=== PATIENT | male | born 1980 | race African-American/Black ===

== ENCOUNTER 2019-01-02 11:55 | Emergency (ER) | payer SELFPAY ==
[~2019-01-02] VITALS: Ht 195.6 cm; Wt 136.1 kg
[2019-01-02 12:04] VITALS: BP 123/73
--- NOTE | 2019-01-02 12:10 | NUR ---
ED Nurse Note: Patient walked into ED c/o right arm/elbow pain for 2 days. patient denies any injury. patient is alert awake x4 ambulatory. breathing unlabored and even.
--- NOTE | 2019-01-02 12:24 | Emergency Room Report ---
History of Present Illness General Chief Complaint: Pain Source: Patient Present Illness HPI 62-year-old male brought in by self complaining of right arm pain x2 days. Pain started upon awakening. Pain is 10/10 sore in quality. Denies numbness. Denies any fall or trauma. denies shortness of breath or chest pain. Allergies: Coded Allergies: No Known Allergies (Unverified , 01/02/19) Patient History Past Medical History: COPD Past Surgical History: none Pertinent Family History: none Social History: Reports: smoking Review of Systems Musculoskeletal: Reports: joint pain All Other Systems: negative except mentioned in HPI Physical Exam Vital Signs Date Time Temp Pulse Resp B/P (MAP) Pulse Ox O2 Delivery O2 Flow Rate FiO2 01/02/19 12:04 99.0 94 20 123/73 (90) 94 Room Air Sp02 EP Interpretation: abnormal General Appearance: normal inspection Head: normocephalic, atraumatic Eyes: bilateral eye normal inspection, bilateral eye PERRL ENT: hearing grossly normal Neck: full range of motion Respiratory: chest non-tender, lungs clear, normal breath sounds, speaking full sentences Cardiovascular #1: regular rate, rhythm, no edema Rectal: deferred Musculoskeletal: back normal, gait/station normal, decreased range of motion - right shoulder and elbow: no deformity, no swelling, tender to right anterior shoulder and elbow, decreased active ROM due to pain. 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 Neurologic: alert, oriented x3, responsive, motor strength/tone normal, sensory intact, speech normal Psychiatric: judgement/insight normal, memory normal, mood/affect normal, no suicidal/homicidal ideation Reflexes: 3+ bicep (R), 3+ bicep (L), 3+ tricep (R), 3+ tricep (L), 3+ knee (R) , 3+ knee (L) Lymphatic: no adenopathy Medical Decision Making PA Attestation This patient was seen under the direct supervision of [Dr. Amador Joy] who directed all aspects of care and diagnostic interpretation. Medical: COPD Diagnostic Impression: Primary Impression: Shoulder pain, right Qualified Codes: M25.511 - Pain in right shoulder ER Course ED course HPI: 38-year-old male complaining of right upper extremity pain for 2 days, pain started upon awakening. Pain worse with movement. Denies fall or trauma. Patient is well-appearing, no acute distress. Ddx: Fracture versus muscle strain versus frozen shoulder. HPI & PE consistent with: acute right shoulder pain Orders/ Interventions: X-rays of the right shoulder and right elbow ordered. Patient medicated with ibuprofen 600 mg x 1. Arm sling applied to the right upper extremity. X-rays negative for acute fracture or dislocation. Results discussed with patient. Disposition: Patient stable for discharge home. Arm sling use for 2 days. Modified physical activity. Continue with OTC ibuprofen. Other X-Ray Diagnostic Results Other X-Ray Diagnostic Results #1: X-Ray ordered: shoulder (right) # of Views/Limited Vs Complete: 3 View Indication: Pain EP Interpretation: Yes MITALI Xray: Interpretation reviewed, by supervising MD, and agrees with findings. Interpretation: no dislocation, no soft tissue swelling, no fractures Impression: No acute disease Electronically Signed by: Narendra Aguiar PA-C Other X-Ray Diagnostic Results #2: X-Ray ordered: elbow (right) # of Views/Limited Vs Complete: 3 View Indication: Pain EP Interpretation: Yes MITALI Xray: Interpretation reviewed, by supervising MD, and agrees with findings. Interpretation: no dislocation, no soft tissue swelling, no fractures Impression: No acute disease Electronically Signed by: Naerndra Aguiar PA-C Last Vital Signs Date Time Temp Pulse Resp B/P (MAP) Pulse Ox O2 Delivery O2 Flow Rate FiO2 01/02/19 12:04 99.0 94 20 123/73 (90) 94 Room Air Disposition: HOME, SELF-CARE Condition: Stable Patient Instructions: Shoulder Pain Additional Instructions: Physical activity. Use arm sling for 2 days. Gradually start range of motion exercises. Take OTC ibuprofen for pain, take with food. Follow-up with PCP in 2 days or return to ED if worsening symptoms, new symptoms or sudden change in condition. Narendra Aguiar Jan 02, 2019 12:24
--- NOTE | 2019-01-02 13:09 | Diagnostic Imaging Report ---
Indication: Right shoulder pain COMPARISON: None Findings: 3 views of the right shoulder were obtained. No acute fractures, malalignment, erosions or periostitis are identified. Soft tissues are unremarkable. Impression: Negative for acute injury
--- NOTE | 2019-01-02 13:10 | Diagnostic Imaging Report ---
Indication: Right elbow pain Findings: 3 views of the right elbow were obtained. No acute fractures, malalignment, erosions or periostitis are identified. Soft tissues are unremarkable. Impression: Negative for acute injury
[2019-01-02 13:47] VITALS: BP 123/73
--- NOTE | 2019-01-02 13:47 | NUR ---
ER DISCHARGE NOTE: Patient is cleared to be discharged per ABILIO TORRES, pt is aox4, on room air, with stable vital signs. pt was given dc and prescription instructions, pt was able to verbalize understanding, pt id band removed without complications. pt is able to ambulate with steady gait. pt took all belongings.
== END 2019-01-02 13:47 | disposition home or self-care (01) ==
LOC: EMR 13:15
DX: M25.511 Pain in right shoulder (principal); F17.200 Nicotine dependence, unspecified, uncomplicated
CPT/HCPCS: 99283

== ENCOUNTER 2019-05-21 11:08 | Emergency (ER) | payer MEDICAID ==
[~2019-05-21] VITALS: Ht 195.6 cm; Wt 158.8 kg
[2019-05-21 11:20] VITALS: BP 102/69
--- NOTE | 2019-05-21 11:20 | NUR ---
ED Nurse Note: Patient arrived to ED from home complaining of "boil" on his inner thigh for the last 3 days. Patient states it hurts, 10/10 burning pain with movement. Patient AxO x 4, VSS.
[2019-05-21] MEDS ORDERED: AUGMENTIN 875-1 EAC1 ORAL (11:40)
[2019-05-21] MEDS ORDERED: IBUPROFEN600 MG ORAL (11:40)
[2019-05-21 11:45] VITALS: BP 110/74
--- NOTE | 2019-05-21 11:45 | NUR ---
ER DISCHARGE NOTE: Patient is cleared to be discharged per ERMD, pt is aox4, on room air, with stable vital signs. pt was given dc and prescription instructions, pt was able to verbalize understanding, pt id band removed. pt is able to ambulate with steady gait. pt took all belongings
--- NOTE | 2019-05-21 14:23 | Emergency Room Report ---
History of Present Illness General Chief Complaint: Male Urogenital Problems Source: Patient, Caregiver Present Illness HPI 38-year-old male presents ED for evaluation. Notes pain to his perineal area started 3 days ago. Dull, 8 out of 10, nonradiating. Denies fevers or chills. Denies testicular pain. Denies discharge. No other aggravating relieving factors. Denies any other associated symptoms Allergies: Coded Allergies: No Known Allergies (Unverified , 01/02/19) Patient History Past Medical History: psych hx Pertinent Family History: none Social History: Denies: smoking, alcohol use, drug use Immunizations: UTD Reviewed Nursing Documentation: PMH: Agreed; PSxH: Agreed Nursing Documentation-PMH Past Medical History: No History, Except For Hx COPD: Yes - bronchitis Hx Gastrointestinal Problems: Yes - oral surgery Review of Systems All Other Systems: negative except mentioned in HPI Physical Exam Vital Signs Date Time Temp Pulse Resp B/P (MAP) Pulse Ox O2 Delivery O2 Flow Rate FiO2 05/21/19 11:12 97.3 106 20 102/69 (80) 95 Room Air Sp02 EP Interpretation: reviewed, normal General Appearance: no apparent distress, alert, GCS 15, non-toxic Head: normocephalic Eyes: bilateral eye normal inspection, bilateral eye PERRL ENT: normal ENT inspection Neck: normal inspection Respiratory: normal inspection Cardiovascular #1: normal inspection Gastrointestinal: normal inspection Rectal: deferred Genitourinary: no CVA tenderness, other - erythema/induration perineal area. no fluctuance or discharge Musculoskeletal: normal inspection Neurologic: alert, motor strength/tone normal, oriented x3, sensory intact, responsive, speech normal Psychiatric: judgement/insight normal, memory normal, mood/affect normal, no suicidal/homicidal ideation Skin: normal color Lymphatic: normal inspection Medical Decision Making Diagnostic Impression: Primary Impression: Abscess ER Course Hospital Course 38 yo M presents to ED c/o pain to the perineal area Differential diagnoses include: Cellulitis, dermatitis, insect bite, abscess Clinical course Patient placed on stretcher. After initial history, physical exam reveals a male in no acute distress. On exam there is erythema/swelling to the perineal area. No fluctuance or discharge. Patient also has multiple healing abscesses to the buttock. Patient afebrile, nontoxic-appearing. Discussed findings with patient and caregiver at bedside. Patient does have history of psychiatric and cognitive delay. Consideration for antibiotics and warm soaks. Safe for discharge for close outpatient follow-up. I will provide referrals Diagnosis - abscess stable and discharged to home with prescription for augmentin, motrin. Instructed to followup with PMD. Instructed return to ED if symptoms recur or worsen Last Vital Signs Date Time Temp Pulse Resp B/P (MAP) Pulse Ox O2 Delivery O2 Flow Rate FiO2 05/21/19 11:12 97.3 106 20 102/69 (80) 95 Room Air Status: improved Disposition: HOME, SELF-CARE Condition: Stable Scripts Ibuprofen* (MOTRIN*) 600 Mg Tablet 600 MG ORAL Q8H PRN for For Pain, #30 TAB 0 Refills Prov: Brian Neumann MD 05/21/19 Amoxicillin/Potassium Clav 875-125* (AUGMENTIN 875-125 TABLET*) 1 Each Tablet 1 TAB ORAL TWICE A DAY, #14 TAB Prov: Brian Neumann MD 05/21/19 Referrals: Carolyn Jacinto [facility] Patient Instructions: Abscess, [id number] Brian Neumann MD May 21, 2019 14:23
== END 2019-05-21 11:50 | disposition home or self-care (01) ==
LOC: EMR 11:50
DX: L02.215 Cutaneous abscess of perineum (principal)
CPT/HCPCS: 99282

== ENCOUNTER 2019-05-25 12:59 | Emergency (ER) | payer MEDICAID ==
[~2019-05-25] VITALS: Ht 193 cm; Wt 152.0 kg
[~2019-05-25 12:59] MED LIST: AUGMENTIN 875-1 EAC1 ORAL; IBUPROFEN600 MG ORAL
[2019-05-25 13:19] VITALS: BP 114/70
[2019-05-25] MEDS ORDERED: Lidocaine 1% 10mg/ml/EPI 0.01mg/ml 30ml INJ ONE (13:59)
[2019-05-25] MEDS ORDERED: BACTRIM DS TAB1 EAC1 ORAL (14:14)
[2019-05-25] MEDS ORDERED: CEPHALEXIN500 M1 ORAL (14:14)
--- NOTE | 2019-05-25 14:15 | Emergency Room Report ---
History of Present Illness General Chief Complaint: Skin Rash/Abscess Source: Patient Present Illness HPI 38-year-old male presents with perianal pain, reports sharp pain aggravated by touching it alleviated by not touching it and drainage from a lesion he states on 05/21/2019 that there was drainage after he popped something, he states this happened in the past and he needed an incision and drainage in the past, he denies any fever/chills, patient presents for evaluation Allergies: Coded Allergies: No Known Allergies (Unverified , 01/02/19) Patient History Past Medical History: see triage record Reviewed Nursing Documentation: PMH: Agreed; PSxH: Agreed Nursing Documentation-PMH Past Medical History: No Stated History Hx Cardiac Problems: No Hx Hypertension: No Hx Pacemaker: No Hx Asthma: No Hx COPD: No Hx Diabetes: No Hx Cancer: No Hx Gastrointestinal Problems: No Hx Dialysis: No History Of Psychiatric Problem: No Hx Neurological Problems: No Hx Cerebrovascular Accident: No Hx Seizures: No Review of Systems All Other Systems: negative except mentioned in HPI Physical Exam Vital Signs Date Time Temp Pulse Resp B/P (MAP) Pulse Ox O2 Delivery O2 Flow Rate FiO2 05/25/19 13:05 97.3 88 16 114/70 (85) 95 Room Air General Appearance: well appearing, no apparent distress Head: normocephalic, atraumatic ENT: hearing grossly normal, normal voice Neck: full range of motion, supple Respiratory: no respiratory distress, speaking full sentences Neurologic: alert, normal gait Psychiatric: mood/affect normal Skin: other - 2 x 2 centimeter abscess perianally, open draining Procedures Incision and Drainage Incision and Drainage : Consent: Verbal Site: Right buttock Blade Size: 11 I & D Procedure: betadine prep, sterile drapes applied, sterile dressing applied, gauze wick placed Wound Location: other - Right buttock Wound's Depth, Shape: superficial Wound Length (cm): 2 Wound Explored: no foreign body removed Irrigated w/ Saline (ccs): 50 Anesthesia: Lidocaine w/ Epi Volume Anesthetic (ccs): 10 Patient Tolerated: Well Complications: None Medical Decision Making Diagnostic Impression: Primary Impression: Abscess ER Course 38-year-old male presents with perianal abscess, status post incision and drainage, patient tolerated the procedure well Disposition home with return precautions follow-up with PCP Last Vital Signs Date Time Temp Pulse Resp B/P (MAP) Pulse Ox O2 Delivery O2 Flow Rate FiO2 05/25/19 13:05 97.3 88 16 114/70 (85) 95 Room Air Disposition: HOME, SELF-CARE Condition: Stable Scripts Cephalexin* (KEFLEX*) 500 Mg Tablet 500 MG ORAL EVERY 6 HOURS, #40 CAP Prov: Julio Nieves MD 05/25/19 Trimethoprim/Sulfamethoxazole 160/800* (BACTRIM DS TABLET*) 1 Each Tablet 1 TAB ORAL Q12H, #20 TAB 0 Refills Prov: Julio Nieves MD 05/25/19 Referrals: UMANG KUMAR,REFERRING (PCP) [facility]yn [facility]sen [facility] Patient Instructions: Abscess Additional Instructions: The patient was provided with discharge instructions, notified to follow-up with a primary care doctor and or specialist in the next 24-48 hours, and to return to the ED if they have worsening of their symptoms. Please note that this report is being documented using [employer] technology. This can lead to erroneous entry secondary to incorrect interpretation by the dictating instrument. PLEASE HAVE PACKING REMOVED 05/28/2019 Julio Nieves MD May 25, 2019 14:15
[2019-05-25 14:20] VITALS: BP 114/70
== END 2019-05-25 14:25 | disposition home or self-care (01) ==
LOC: EMR 13:35
DX: L02.31 Cutaneous abscess of buttock (principal)
CPT/HCPCS: 10060; Z7502; 99282